=== PATIENT | male | born 1970 | race African-American/Black ===

== ENCOUNTER 2018-11-12 13:11 | Emergency (ER) | payer OTHER ==
[2018-11-12] MEDS: HYDROCODONE/APAP (5/325) TAB PO (13:35)
[2018-11-12] MEDS: DIPHTH/TET/ACEL PERTUSS (ADULT) 0.5 ML VIAL IM* (13:36)
== END 2018-11-12 16:56 | disposition home or self-care (01) ==
LOC: E/R 13:11
DX: S01.111A Laceration without foreign body of right eyelid and periocular area, initial encounter (principal); R40.2142 Coma scale, eyes open, spontaneous, at arrival to emergency department; R40.2362 Coma scale, best motor response, obeys commands, at arrival to emergency department; R40.2252 Coma scale, best verbal response, oriented, at arrival to emergency department; Y09 Assault by unspecified means; Z23 Encounter for immunization; Z87.891 Personal history of nicotine dependence
CPT/HCPCS: 70450; 70480; 90471; 90715; 99284-25